=== PATIENT | female | born 1970 | race Caucasian/White ===

== ENCOUNTER 2017-04-19 12:34 | Emergency (ER) | payer MEDICAID ==
[~2017-04-19] VITALS: Ht 165.1 cm; Wt 52.2 kg
[2017-04-19 12:50] VITALS: Ht 165.1 cm; Wt 52.2 kg
[2017-04-19 15:41] VITALS: BP 99/65
== END 2017-04-19 15:41 | disposition home or self-care (01) ==
LOC: ED 12:34
DX: R05 Cough (principal); R07.89 Other chest pain; R06.02 Shortness of breath

== ENCOUNTER 2018-10-01 12:55 | Emergency (ER) | payer MEDICAID ==
[~2018-10-01] VITALS: Ht 165.1 cm; Wt 51.3 kg
[2018-10-01 12:59] VITALS: Ht 165.1 cm; Wt 51.3 kg
[2018-10-01 16:07] LABS: BASOPHIL % 0.8 % (0-2); PLATELET COUNT 200 x10^3mcL (130-400); RED CELL DISTRIBUTION WIDTH 14.1 % (11.5-14.5)
[2018-10-01 16:21] LABS: CALCIUM 8.6 mg/dL (8.5-10.1); CARBON DIOXIDE 25.5 mmol/L (21-32); CHLORIDE SERUM 107 mmol/L (98-107); CREATININE SERUM 0.8 mg/dL (0.6-1.0); GFR1 > 60 mL/min; GLUCOSE SERUM 91 mg/dL (74-106); POTASSIUM SERUM 4.4 mmol/L (3.5-5.1); SODIUM SERUM 143 mmol/L (136-145)
[2018-10-01 16:24] LABS: ALKALINE PHOSPHATASE 68 U/L (46-116); ALT/SGPT 13 U/L (14-59); AST/SGOT 11 U/L (15-37); MAGNESIUM 2.2 mg/dL (1.8-2.4); TOTAL PROTEIN, SERUM 7.5 g/dL (6.4-8.2)
[2018-10-01 16:37] LABS: microscopic required? YES; urine erythrocyte NEGATIVE (NEGATIVE)
[2018-10-01 18:30] VITALS: BP 98/72
== END 2018-10-01 18:30 | disposition home or self-care (01) ==
LOC: ED 12:55
PROVIDERS: Emergency Medicine
DX: N39.0 Urinary tract infection, site not specified (principal); R53.1 Weakness; R42 Dizziness and giddiness
CPT/HCPCS: J0696; J1885; J2405; J7030; Q0092

== ENCOUNTER 2018-11-25 04:56 | Inpatient (IN) | payer MEDICAID ==
[~2018-11-25] VITALS: Ht 160 cm; Wt 53.0 kg
[2018-11-25 05:05] VITALS: Ht 160 cm; Wt 53.0 kg
--- NOTE | 2018-11-25 05:11 | NUR ---
PT PRESENTS TO ER TODAY WITH C/O UPPER QUARDANT PAIN THAT STARTED YESTERDAY. PER PT SHE FEELS BLOATED AND RATES HER PAIN A 10/10. PT ALSO REPORTING 6 EPISODES OF VOMITING AND CONSTIPATION. PT REPORTS HER LAST BM WAS YESTERDAY BUT WAS LESS THEN USUAL. PT DENIE ANY BLOOD IN HER STOOL. PT DENIES ANY FEVERS OR UTI SYMPTOMS. PT IS A/O X4. RESP ARE EQUAL AND UNLABORED. NO ACUTE DISTRESS NOTED.
[2018-11-25 06:59] LABS: PLATELET COUNT 178 x10^3mcL (130-400); RED CELL DISTRIBUTION WIDTH 14.1 % (11.5-14.5)
[2018-11-25 07:11] LABS: CALCIUM 8.1 mg/dL (8.5-10.1); CARBON DIOXIDE 27.5 mmol/L (21-32); CHLORIDE SERUM 106 mmol/L (98-107); CREATININE SERUM 0.7 mg/dL (0.6-1.0); GFR1 > 60 mL/min; GLUCOSE SERUM 120 mg/dL (74-106); POTASSIUM SERUM 3.6 mmol/L (3.5-5.1); SODIUM SERUM 141 mmol/L (136-145)
--- NOTE | 2018-11-25 07:11 | NUR ---
RECIEVED REPORT FROM KARLA MENDIETA, TO RESUME CARE OF PT. PT RESTING IN [facility] BED WITH NO ACUTE DISTRESS AT THIS TIME. RESP E/U WITH IV FLUIDS GOING. SHOWING NO S/S OF INFILTRATION.
[2018-11-25 07:14] LABS: BASOPHIL % 0 % (0-2)
[2018-11-25 07:16] LABS: ALBUMIN 3.6 g/dL (3.4-5.0); ALKALINE PHOSPHATASE 64 U/L (46-116); ALT/SGPT 14 U/L (14-59); AST/SGOT 15 U/L (15-37); BILIRUBIN TOTAL 0.43 mg/dL (0.20-1.00); LIPASE 52 IU/L (73-393); TOTAL PROTEIN, SERUM 6.9 g/dL (6.4-8.2)
--- NOTE | 2018-11-25 10:28 | NUR ---
PT RESTING IN [place] WITH RESP E/U IN NO ACUTE DISTRESS.
--- NOTE | 2018-11-25 10:56 | NUR ---
REPORT GIVEN TO JENI MENDIETA IN MED SURG TO RESUME CARE OF PT
--- NOTE | 2018-11-25 11:30 | NUR ---
RECEIVED PT FROM ED, REPORT GIVEN BY ANAM JUAN. PT HAS DX OF SBO VS ILLEUS. PT IS AAOX4. VERBALLY RESPONSIVE. FOLLOWS COMMANDS. DENIES H/A AND DIZZINESS AT THIS TIME. RESP EVEN AND UNLABORED. LUNG SOUNDS CTA. ON R/A. NO C/O COUGH OR SOB. ABDOMEN SOFT, TENDER, NONDISTENDED. PT HAS C/O INTERMITTENT N/V, NONE AT THIS TIME. BOWEL SOUNDS HYPOACTIVE. SKIN CDI. PERIPHERAL PULSES MOD PALPABLE. NO EMEMA NOTED. DENIES NUMBNESS AND TINGLING. IV CATH TO RAC. SITE WNL. IVF STARTED, NO S/S OF INFILTRATION. PT HAS ABDOMINAL PAIN 6/10 AT THIS TIME. TORADOL WILL BE GIVEN. PT ORIENTED TO ROOM AND CALL LIGHT. BED IN LOWEST POSITION, CALL LIGHT WITHIN REACH.
--- NOTE | 2018-11-25 11:40 | NUR ---
EMILIA CH OPERATOR AUTOMATED PROCESS MET WITH PT AND DISCUSSED POC. PT IS TO REMAIN NPO UNTIL DR. HERNDON CAN EVALUATE HER. PT AGREED WITH POC.
--- NOTE | 2018-11-25 11:45 | NUR ---
FLU VACCINE GIVEN TO R DELTOID. TORADOL 15MG IVP GIVEN FOR PULLING ABDOMINAL PAIN 07/17. PT REPOSITIONED FOR COMFORT. PT GIVEN VERBAL EDUCATION ON FLU VACCINE AND S/E. PT VERBALIZED UNDERSTANDING. RESP EVEN AND UNLABORED. CALL LIGHT WITHIN REACH.
[2018-11-25 12:18] VITALS: BP 97/58
--- NOTE | 2018-11-25 12:37 | NUR ---
DR. HERNDON MET WITH PT AND DISSCUSSED POC. PT IS TO HAVE X-RAY SMALL BOWELS SERIES AND REMAIN NPO. PT AGREED WITH POC.
--- NOTE | 2018-11-25 14:00 | NUR ---
PT IS RECEIVING X-RAY SMALL BOWEL FOLLOW THROUGH AT THIS TIME.
--- NOTE | 2018-11-25 15:30 | NUR ---
SECOND X-RAY FOR SMALL BOWEL SERIES COMPLETE. PT DENIES PAIN AND DISCOMFORT. NO N/V. RESP EVEN AND UNLABORED. BED IN LOWEST POSITION. CALL LIGHT WITHIN REACH.
[2018-11-25 15:57] VITALS: BP 100/68
--- NOTE | 2018-11-25 17:24 | NUR ---
RECEIVED TELEPHONE ORDER FROM EMILIA CH, LEDGE MAN, NPO EXCEPTS MEDS DUE TO POSSIBLE PROCEDURE. ORDER NOTED AND CARRIED OUT. PT MADE AWARE.
--- NOTE | 2018-11-25 18:12 | NUR ---
PT IS AAOX4. PT DENIES N/V, ABDOMINAL PAIN AT THIS TIME. RESP EVEN AND UNLABORED. NO DISTRESS NOTED. IVF RUNNING TO RAC. SITE WNL. PT DENIES PAIN. CALL LIGHT WITHIN REACH. BED IN LOWEST POSTION. WILL ENDORSE ALL CARE TO NOC RN.
--- NOTE | 2018-11-25 18:45 | NUR ---
TORADOL 15MG IVP GIVEN FOR PULLING ABDOMINAL PAIN 07/17. RESP EVEN AND UNLABORED. CALL LIGHT WITHIN REACH.
--- NOTE | 2018-11-25 18:50 | NUR ---
PT STATES SHE IS A SMOKER AND WOULD LIKE A NICOTINE PATCH. PT HAD REPORT DR. AVILA WHO ORDERED NICOTINE PATCH FOR PT.
[2018-11-25 19:20] VITALS: BP 100/55
--- NOTE | 2018-11-25 19:20 | NUR ---
RECEIVED PT FROM PREVIOUS SHIFT NURSE. PT AOX4, DENIES CARO/DIZZINESS. MED SURG PT, DENIES CP/PRESSURE. DENIES SOB/DIFFICULTY BREATHING, ON RA. IV TO RAC, INTACT AND PATENT. BED IN LOWEST POSITION. CALL LIGHT WITHIN REACH. WILL CONTINUE TO MONITOR.
--- NOTE | 2018-11-25 21:30 | NUR ---
PT REPORTS SMALL AMOUNT OF LOOSE STOOL.
--- NOTE | 2018-11-26 03:00 | NUR ---
PT RESTING IN BED. RR EVEN AND UNLABORED. IN NO ACUTE DISTRESS. CALL LIGHT WITHIN REACH. BED IN LOWEST POSITION. WILL CONTINUE TO MONITOR.
[2018-11-26 05:32] VITALS: BP 97/54
[2018-11-26 06:30] LABS: BASOPHIL % 0.4 % (0-2); PLATELET COUNT 158 x10^3mcL (130-400); RED CELL DISTRIBUTION WIDTH 13.9 % (11.5-14.5)
[2018-11-26 06:51] LABS: CALCIUM 7.6 mg/dL (8.5-10.1); CARBON DIOXIDE 26.7 mmol/L (21-32); CHLORIDE SERUM 110 mmol/L (98-107); CREATININE SERUM 0.7 mg/dL (0.6-1.0); GFR1 > 60 mL/min; GLUCOSE SERUM 89 mg/dL (74-106); POTASSIUM SERUM 3.4 mmol/L (3.5-5.1); SODIUM SERUM 143 mmol/L (136-145)
[2018-11-26 07:50] VITALS: BP 100/60
--- NOTE | 2018-11-26 07:50 | NUR ---
PT LYING IN BED A/A. BREATHING EQUAL/ UNLABORED ON RA. IVF RUNNINNG AT 80 ML/HR. NO REDNESS/ SWELLING TO IV SITE. C/O ABD PAIN 5/10 AND STATES SHE DOES NOT WANT PAIN MEDS AT THIS TIME. RELAXATION ENCOURAGED. BED IN LOW POSITION, CALL LIGHT IN REACH, SAFETY PRECAUTIONS IN PLACE. WILL CONTINUE TO MONITOR
[2018-11-26 11:46] VITALS: BP 103/65
[2018-11-26 11:57] LABS: microscopic required? YES; urine erythrocyte 3+ (NEGATIVE)
--- NOTE | 2018-11-26 13:07 | NUR ---
PT LYING IN BED A/A, BREATHING EQUAL/ UNALBORED ON RA. IV DC'D D/T LEAKING. NEW IV STARTED ON RAC, FLUSHING WELL WITH GOOD BLOOD RETURN. IVF RUNNING/ K RUNNING. NO REDNESS/ SWELLING TO IV SITE. PT C/O MILD PAIN TO ABD. MEDICATION WAS GIVEN. BED IN LOW POSITION, CALL LIGHT IN REACH, SAFETY PRECAUTIONS IN PLACE. WILL CONTINUE TO MONITOR
[2018-11-26 16:07] VITALS: BP 106/59
--- NOTE | 2018-11-26 16:22 | NUR ---
PT LYING IN BED A/A. BREATHING EQUAL UNLABORED ON RA. IVF RUNNING AT 40ML/HR. NO REDNESS/ SWELLING TO IV SITE. NO ACUTE PAIN/ DISTRESS AT THIS TIME. BED IN LOW POSITION, CALL LIGHT IN REACH, SAFETY PRECAUTIONS IN PLACE. WILL CONTINUE TO MONITOR
--- NOTE | 2018-11-26 18:35 | NUR ---
PT SITTING UP IN BED, A/A. BREATHING EQUAL/ UNLABORED ON RA. IVF RUNNING AT 40 ML/HR. NO REDNESS/ SWELLING TO IV SITE. NO ACUTE PAIN/ DISTRESS. BED IN LOW POSITION, CALL LIGHT IN REACH, SAFETY PRECAUTIONS IN PLACE. WILL ENDORSE TO ON COMING NURSE
[2018-11-26 19:14] VITALS: BP 102/59
--- NOTE | 2018-11-26 19:30 | NUR ---
RECEIVED PT FROM DAY SHIFT RN. PT AAOX4 DENIES CARO/DIZZINESS. BREATHING EVEN AND UNLABORED ON RA WITH NO SOB NOTED. MED SURG PT DENIES CHEST PAIN/PRESSURE. ABD SOFT/ROUND ACTIVE BOWEL SOUNDS DENIES ABD PAIN/N/V AT THIS TIME. PER PT SHE HAS HAD TWO EPISODES OF DIARRHEA DURING THE DAY. PER PT SHE IS ON HER MENSTRAUL CYCLE. VOIDS FREELY. AMBULATORY WITH BRP. IV LAC PATENT INFUSING WELL. NO SIGNS OF DISTRESS NOTED. CALL BUTTON WITHIN REACH. SAFETY PRECAUTIONS IN PLACE. WILL CONTINUE TO MONITOR.
--- NOTE | 2018-11-27 00:44 | NUR ---
PT RESTING. NO SIGNS OF DISTRESS NOTED. CALL BUTTON WITHIN REACH. SAFETY PRECAUTIONS IN PLACE. WILL CONTINUE TO MONITOR.
[2018-11-27 04:24] VITALS: BP 95/50
--- NOTE | 2018-11-27 04:41 | NUR ---
PT SLEPT MOST OF THE NIGHT WITH NO SIGNS OF DISTRESS NOTED. BREATHING EVEN AND UNLABORED ON RA WITH NO SOB NOTED. PT DENIES ANY PAIN/DISTRESS. IV PATENT INFUSING WELL. NO SIGNS OF INFILTRATION. MEDICATED PER EMAR. PT NPO SINCE MIDNIGHT. CALL BUTTON WITHIN REACH. SAFETY PRECAUTIONS IN PLACE. WILL CONTINUE TO MONITOR.
[2018-11-27 06:33] LABS: CALCIUM 7.8 mg/dL (8.5-10.1); CARBON DIOXIDE 25.1 mmol/L (21-32); CREATININE SERUM 0.7 mg/dL (0.6-1.0); GFR1 > 60 mL/min; GLUCOSE SERUM 99 mg/dL (74-106)
[2018-11-27 06:47] LABS: BASOPHIL % 0.5 % (0-2); PLATELET COUNT 157 x10^3mcL (130-400); RED CELL DISTRIBUTION WIDTH 13.6 % (11.5-14.5)
--- NOTE | 2018-11-27 07:15 | NUR ---
AAO X4.DENIES ANY PAIN/DISCOMFORT.LUNGS CLEAR.IVF D5 1/2 NS GOING AT 40 ML/HR INFUSING WELL.CALL LIGHT WITHIN REACH.INSTRUCTED TO CALL FOR ANY PAIN/DISCOMFORT.ON NPO STATUS.WILL CONTINUE TO MONITOR.
--- NOTE | 2018-11-27 07:31 | NUR ---
PT RESTING. NO SIGNS OF DISTRESS NOTED. ENDORSED CARE TO DAY SHIFT RN, ALL QUESTIONS ADDRESSED.
[2018-11-27 07:33] LABS: CHLORIDE SERUM 110 mmol/L (98-107); POTASSIUM SERUM 3.7 mmol/L (3.5-5.1); SODIUM SERUM 143 mmol/L (136-145)
[2018-11-27 08:05] VITALS: BP 96/54
[2018-11-27 08:06] VITALS: BP 100/58
--- NOTE | 2018-11-27 15:02 | NUR ---
PT AMBULATING ON THE HALLWAYS TOLERATING IT WELL.
--- NOTE | 2018-11-27 15:58 | NUR ---
Discount pharmacy card and list to low cost medical clinics given to patient by Kylah Hutton.
[2018-11-27 17:00] VITALS: BP 102/58
--- NOTE | 2018-11-27 19:20 | NUR ---
NO SIGNIFICANT CHANGE NOTED.WILL ENDORSE TO NEXT SHIFT.
--- NOTE | 2018-11-27 19:55 | NUR ---
SHIFT REASSESSMENT DONE.PATIENT ALERT AND ORIENTED.SBO DX,REPORT FROM DAY SHIFT RESOLVED.BREATHING EASY.AMBULATORY.IVF INFUSING WELL LAC SITE.MEDSURG PATIENT.SKIN INTACT.VOIDING/MONTHLY PERIOD PER REPORT.CALL LIGHT IN REACH.
--- NOTE | 2018-11-27 20:46 | NUR ---
FAMILY VISITING,SUPPORTIVE OF CARE.DENIES PAIN.IVF INFUSING WELL.REMINDED TO CALL FOR ASSISTANCE.
--- NOTE | 2018-11-27 20:54 | NUR ---
WANTING TO KNOW IF HER NICOTINE PATCH WILL BE CHANGE TOMORROW,I SAID YES,ALSO WANTING TO KNOW IF SHE GOING TO HAVE IT AT HOME,REMINDED TO ASK PHYSICIAN FOR RX ON HER DC DAY.
[2018-11-27 21:22] VITALS: BP 111/76
--- NOTE | 2018-11-27 22:56 | NUR ---
GIVEN TORADOL IVP REQUESTED,ABD PAIN.
--- NOTE | 2018-11-28 04:47 | NUR ---
IVFINFUSING WELL.NO COMPLAINT AT THIS TIME.
[2018-11-28 04:55] VITALS: BP 91/53
--- NOTE | 2018-11-28 06:15 | NUR ---
I AND O MEASURED.NEW IVF.WILL ENDORSE TO NEXT SHIFT.CALL LIGHT IN REACH.
--- NOTE | 2018-11-28 07:15 | NUR ---
AAO X4.DUTCH MOSTLY.DENIES ANY PAIN/DISCMFORT.LUNGS CLEAR.CLAIMS TO BE PASSING GAS.CALL LIGHT WITHIN REACH.INSTRUCTED TO CALL FOR ANY PAIN/DISCOMFORT.WILL CONTINUE TO MONITOR PT.
[2018-11-28 08:31] VITALS: BP 110/64
[2018-11-28 08:37] LABS: BASOPHIL % 0.6 % (0-2); PLATELET COUNT 194 x10^3mcL (130-400); RED CELL DISTRIBUTION WIDTH 13.7 % (11.5-14.5)
[2018-11-28 09:04] LABS: CALCIUM 8.9 mg/dL (8.5-10.1); CARBON DIOXIDE 30.6 mmol/L (21-32); CHLORIDE SERUM 107 mmol/L (98-107); CREATININE SERUM 0.8 mg/dL (0.6-1.0); GFR1 > 60 mL/min; GLUCOSE SERUM 131 mg/dL (74-106); POTASSIUM SERUM 4.1 mmol/L (3.5-5.1); SODIUM SERUM 143 mmol/L (136-145)
[2018-11-28] MEDS ORDERED: NIC14 TD (10:25)
[2018-11-28 10:42] VITALS: BP 110/64
--- NOTE | 2018-11-28 11:15 | NUR ---
pt d/c to home.iv d/c'd.discharge instruction give.told her her nicotine patch is alreadybeen transmitted to her pharmacy.pt verbalizes understanding.awaiting for friend to come pick her up.
--- NOTE | 2018-11-28 13:12 | NUR ---
SON HERE TO IT BUSINESS ANALYST PT.WENT DOWN AMBULATORY ACCOMPANIED BY SON AND [employer] PREP TEACHER.
== END 2018-11-28 13:13 | disposition home or self-care (01) | DRG 247 ==
LOC: ED 04:56 → MU 09:02
PROVIDERS: Emergency Medicine; General Practice; ADMIT Internal Medicine
DX: K56.609 Unspecified intestinal obstruction, unspecified as to partial versus complete obstruction (principal); E83.51 Hypocalcemia; F17.210 Nicotine dependence, cigarettes, uncomplicated; Z68.20 Body mass index [BMI] 20.0-20.9, adult
CPT/HCPCS: 90658; C9113; G0378; J1885; J2270; J2405; J3480; J7030; J7042; Q0092; Q9967

== ENCOUNTER 2018-12-05 01:18 | Emergency (ER) | payer MEDICAID ==
[~2018-12-05] VITALS: Ht 160 cm; Wt 54.0 kg
[~2018-12-05 01:18] MED LIST: NIC14 TD
[2018-12-05 01:25] VITALS: Ht 160 cm; Wt 54.0 kg
[2018-12-05 04:34] VITALS: BP 102/73
== END 2018-12-05 04:34 | disposition home or self-care (01) ==
LOC: ED 01:18
DX: R51 Headache (principal); H92.01 Otalgia, right ear; R42 Dizziness and giddiness; R00.2 Palpitations; R53.1 Weakness; R11.0 Nausea
CPT/HCPCS: J1885; J8597

== ENCOUNTER 2019-01-25 18:48 | Emergency (ER) | payer MEDICAID ==
[~2019-01-25] VITALS: Ht 152.4 cm; Wt 55.3 kg
[2019-01-25 18:52] VITALS: Ht 152.4 cm; Wt 55.3 kg
[2019-01-25 22:26] VITALS: BP 108/61
== END 2019-01-25 22:26 | disposition home or self-care (01) ==
LOC: ED 18:48
DX: R07.81 Pleurodynia (principal); N83.209 Unspecified ovarian cyst, unspecified side; F17.210 Nicotine dependence, cigarettes, uncomplicated

== ENCOUNTER 2019-03-03 00:54 | Emergency (ER) | payer MEDICAID ==
[~2019-03-03] VITALS: Ht 160 cm; Wt 53.5 kg
[2019-03-03 01:00] VITALS: Ht 160 cm; Wt 53.5 kg
[2019-03-03 02:43] LABS: BASOPHIL % 0.9 % (0-2); PLATELET COUNT 188 x10^3mcL (130-400); RED CELL DISTRIBUTION WIDTH 13.6 % (11.5-14.5)
[2019-03-03 03:25] LABS: CHLORIDE SERUM 106 mmol/L (98-107); POTASSIUM SERUM 3.9 mmol/L (3.5-5.1); SODIUM SERUM 142 mmol/L (136-145)
[2019-03-03 03:26] LABS: ALBUMIN 3.7 g/dL (3.4-5.0); ALKALINE PHOSPHATASE 98 U/L (46-116); ALT/SGPT 23 U/L (14-59); AST/SGOT 21 U/L (15-37); BILIRUBIN TOTAL 0.21 mg/dL (0.20-1.00); CARBON DIOXIDE 30.3 mmol/L (21-32); CREATININE SERUM 0.8 mg/dL (0.6-1.0); GFR1 > 60 mL/min; GLUCOSE SERUM 92 mg/dL (74-106)
[2019-03-03 07:23] VITALS: BP 104/62
== END 2019-03-03 07:23 | disposition home or self-care (01) ==
LOC: ED 00:54
PROVIDERS: Emergency Medicine
DX: R07.89 Other chest pain (principal); R51 Headache; N76.0 Acute vaginitis; M25.521 Pain in right elbow; M25.522 Pain in left elbow
CPT/HCPCS: 36415; 87491; 87591; Q0092

== ENCOUNTER 2019-12-26 14:00 | Emergency (ER) | payer MEDICAID ==
[~2019-12-26] VITALS: Ht 154.9 cm; Wt 72.6 kg
[2019-12-26 14:22] VITALS: Ht 154.9 cm; Wt 72.6 kg
[2019-12-26 15:24] LABS: BASOPHIL % 0.9 % (0-2); PLATELET COUNT 191 x10^3mcL (130-400); RED CELL DISTRIBUTION WIDTH 14.3 % (11.5-14.5)
[2019-12-26 15:37] LABS: CALCIUM 8.5 mg/dL (8.5-10.1); CARBON DIOXIDE 30.2 mmol/L (21-32); CHLORIDE SERUM 106 mmol/L (98-107); CREATININE SERUM 0.9 mg/dL (0.6-1.0); GFR1 > 60 mL/min; GLUCOSE SERUM 89 mg/dL (74-106); POTASSIUM SERUM 3.9 mmol/L (3.5-5.1); SODIUM SERUM 141 mmol/L (136-145)
[2019-12-26 15:43] LABS: ALBUMIN 3.9 g/dL (3.4-5.0); ALKALINE PHOSPHATASE 81 U/L (46-116); ALT/SGPT 20 U/L (14-59); AST/SGOT 18 U/L (15-37); BILIRUBIN TOTAL 0.3 mg/dL (0.20-1.00); TOTAL PROTEIN, SERUM 6.6 g/dL (6.4-8.2)
[2019-12-26 17:03] VITALS: BP 112/72
== END 2019-12-26 17:03 | disposition home or self-care (01) ==
LOC: ED 14:00
PROVIDERS: Emergency Medicine
DX: B34.9 Viral infection, unspecified (principal); M54.2 Cervicalgia; F17.210 Nicotine dependence, cigarettes, uncomplicated; Z20.828 Contact with and (suspected) exposure to other viral communicable diseases
CPT/HCPCS: 99406; J1885; U0003